=== PATIENT | male | born 1970 | race Caucasian/White ===

== ENCOUNTER 2017-02-10 05:54 | Day surgery (SDC) | payer OTHER ==
[~2017-02-10] VITALS: Ht 172.7 cm; Wt 77.3 kg
[2017-02-10] MEDS ORDERED: SODIUM CHLORIDE 0.9% 1,000 ML IV ONE ×2 (06:00→06:06)
[2017-02-10] MEDS ORDERED: MONT10TA21 PO (07:10)
[2017-02-10] MEDS ORDERED: ILOP4TAB2 PO (07:10)
[2017-02-10] MEDS ORDERED: ALBU8.5H IH (07:10)
[2017-02-10] MEDS ORDERED: METF500T4 PO (07:10)
[2017-02-10] MEDS ORDERED: PRED10 PO (07:10)
[2017-02-10] MEDS ORDERED: IPRA3AMP4 NEB (07:10)
[2017-02-10] MEDS ORDERED: PROP40TA7 PO (07:10)
[2017-02-10] MEDS ORDERED: SIMV-260 PO (07:10)
[2017-02-10] MEDS ORDERED: OMEP20 PO (07:10)
[2017-02-10] MEDS ORDERED: MOME13HF IH (07:10)
[2017-02-10] MEDS ORDERED: BENZ-26 PO (07:10)
[2017-02-10] MEDS ORDERED: ASPI81 PO (07:10)
[2017-02-10] MEDS ORDERED: FLUT16H NASAL (07:10)
[2017-02-10] MEDS ORDERED: LISI-660 PO (07:10)
[2017-02-10] MEDS ORDERED: MIDAZOLAM HCL 2 MG/2 ML VIAL ONE (07:28)
[2017-02-10] MEDS ORDERED: FentaNYL CITRATE-PF 100 MCG/2 ML VIAL ONE (07:28)
[2017-02-10] MEDS ORDERED: MethylPREDNISolone SOD SUCC 125 MG/2 ML VIAL IVP ONE (08:30)
[2017-02-10] MEDS ORDERED: MethylPREDNISolone SOD SUCC 125 MG/2 ML VIAL ONE (08:55)
[2017-02-10] MEDS ORDERED: LIDOCAINE HCL 4% 50 ML SOLUTION TP ONE (17:09)
[2017-02-10] MEDS ORDERED: ALBUTEROL SULFATE 2.5 MG/0.5 ML NEB SOLUTION NEB ONE (17:09)
[2017-02-10] MEDS ORDERED: BENZOCAINE 20% 50 MCG/SPRAY 57 GM TP ONE (17:09)
[2017-02-10] MEDS ORDERED: EPINEPHrine 1:1,000 [1 MG/ML] AMP IM ONE (17:09)
[2017-02-10] MEDS ORDERED: LIDOCAINE HCL 2% 30 ML JELLY TP ONE (17:09)
[2017-02-10] MEDS ORDERED: OXYGEN THERAPY IH SCH (20:00)
== END 2017-02-10 09:45 | disposition home or self-care (01) ==
LOC: SURGERY 05:54
PROVIDERS: ATTEND Internal Medicine Critical Care Medicine
DX: J38.4 Edema of larynx (principal); B37.0 Candidal stomatitis; E11.9 Type 2 diabetes mellitus without complications; F20.9 Schizophrenia, unspecified; F17.200 Nicotine dependence, unspecified, uncomplicated; Z79.899 Other long term (current) drug therapy; Z79.82 Long term (current) use of aspirin
CPT/HCPCS: 31623; 31624; 71010; 87015 ×2; 87070; 87101; 87147; 87205; 87220; 88108; 88184; 88185; 88312; J0171; J2250; J2930; J3010; J7030